=== PATIENT | male | born 1960 | race Caucasian/White ===

== ENCOUNTER → 2025-10-26 11:32 | Outpatient (REF) | payer MEDICARE, OTHER, SELFPAY | LOC: REG 11:32 | PROVIDERS: ATTENDING PHYSICIAN Family Medicine | DX: R05.1 Acute cough (principal); Z20.828 Contact with and (suspected) exposure to other viral communicable diseases; J11.1 Influenza due to unidentified influenza virus with other respiratory manifestations; J18.9 Pneumonia, unspecified organism | CPT/HCPCS: 71046 ==